=== PATIENT | male | born 1950 | race Caucasian/White ===

== ENCOUNTER 2017-04-25 02:42 | Emergency (ER) | payer OTHER ==
[~2017-04-25 02:42] MED LIST: METFORMIN HCL500 MG PO; PRO40 PO; SIMVASTATIN40 M1 PO; TRIBENZOR1 TA4 PO
[2017-04-25 04:41] VITALS: BP 138/81
== END 2017-04-25 04:41 | disposition home or self-care (01) ==
LOC: ED 02:42
DX: M62.830 Muscle spasm of back (principal); E11.9 Type 2 diabetes mellitus without complications; I10 Essential (primary) hypertension; E78.5 Hyperlipidemia, unspecified; E78.00 Pure hypercholesterolemia, unspecified
CPT/HCPCS: 20552; 82962; J1885; J2001

== ENCOUNTER 2019-02-21 19:10 | Emergency (ER) | payer OTHER | END 2019-02-21 23:44 | disposition home or self-care (01) | LOC: ED 19:10 ==

== ENCOUNTER 2019-02-23 10:59 | Inpatient (IN) | payer OTHER ==
[~2019-02-23] VITALS: Ht 160 cm; Wt 77.1 kg
[2019-02-23 11:08] VITALS: Ht 160 cm; Wt 77.1 kg
--- NOTE | 2019-02-23 11:26 | NUR ---
PT HERE FOR ABD PAIN BILATERAL UPPER QUADRANTS RADIATING TO BILATERAL FLANK 06/26. ABD SOFT AND ROUND WITHOUT PALP MASSES PRESENT. SEEN HERE FRID AND DX WITH STONES. CLAIMS PAIN IS WORSE TODAY AND HAS NAUSEA. DENIES V/D/FEVER PT ARRIVES ALERT AND ORIENTED WITH NO DISTRESS NOTED AND VSS. AWAITING MD ROA. URINE OBTAINED
--- NOTE | 2019-02-23 12:12 | NUR ---
CHIEF GUARD AT BEDSIDE GIVING ORAL CONTRAST. PT TO DRINK WITHIN 2 HOURS. PT AWARE AND VERBALIZED UNDERSTANDING
--- NOTE | 2019-02-23 12:45 | NUR ---
PT IN BED WITH EYES CLOSED AND NO PAIN NOTED OR APPARANT AT THIS TIME. BREATHING IS ALFREDO AND UNLABORED
[2019-02-23 12:51] LABS: PLATELET COUNT 139 x10^3mcL (130-400); RED CELL DISTRIBUTION WIDTH 13.6 % (11.5-14.5)
[2019-02-23 13:10] LABS: BAND NEUTROPHIL 6 % (0-10); BASOPHIL 0 % (0-2); MONOCYTE 4 % (0-7); PLATELET MORPHOLOGY PLATELETS NORMAL; SEGMENTED NEUTROPHILS 86 % (37-75)
[2019-02-23 13:24] LABS: ALBUMIN 3.5 g/dL (3.4-5.0); BILIRUBIN TOTAL 1.9 mg/dL (0.20-1.00); CALCIUM 9.2 mg/dL (8.5-10.1); CREATININE SERUM 1.3 mg/dL (0.7-1.3); POTASSIUM SERUM 4.8 mmol/L (3.5-5.1); TOTAL PROTEIN, SERUM 7.1 g/dL (6.4-8.2)
--- NOTE | 2019-02-23 15:37 | NUR ---
MED PER ORDER FOR 8/10 ABD PAIN. ON MONITORS.
--- NOTE | 2019-02-23 16:00 | NUR ---
PT ASKING FOR FOOD "SINCE I'M A DIABETIC." PER DR. CRAIG, NOTHING TO EAT @ THIS TIME.
--- NOTE | 2019-02-23 16:10 | NUR ---
FAMILY HERE, ASKING ABOUT WHAT TESTS HE'S HAVING THIS TIME. PT WAS HERE RECENTLY & HAD A NON-CONTRAST CT. TODAY'S ORDERED CT IS W/ CONTRAST. FAMILY SAID "OH, GOOD." FAMILY STATES PT WAS JUST BELCHING & APPEARS A LITTLE BLOATED.
--- NOTE | 2019-02-23 19:35 | NUR ---
PT AWAKE AND ALERT, NO S/S OF DISTRESS, RESPIRATIONS EVEN AND UNLABORED. PT IT TALKING WITH FAMILY MEMBER AT BEDSIDE. PT REPORTS PAIN HAS DECREASED TO A 4/10 AND IS TOLERABLE.
--- NOTE | 2019-02-23 20:25 | NUR ---
REPORTS CALLED TO GREGORIO MORALES TO ASSUME CARE OF PT.
[2019-02-23 20:50] VITALS: BP 126/68
--- NOTE | 2019-02-23 20:59 | NUR ---
RECEIVED PT FROM ER, PT ADMIT FOR PANCREATITIS, CHOLECYSTITIS, PT IS A/O X4, VERBAL RESPONSIVE, ABLE TO TELL WHAT HE NEEDS. LUNG SOUND CLEAR BILATERAL, NO COUGH, NO SOB, PT DENY ANY CHEST PAIN OR DISCOMFORT, BOWEL SOUND PRESENT ALL 4 QUADRANTS, NO DISTENTION, BUT PT C/O MILD ABD PAIN 4/10, AND NAUSEA. PEDAL PULSE PRESENT BOTH FEET, NO EDEMA, IV AT RIGHT AC, NO LEAKING, NO INFILTRATION. ALL ADLS ASSIST, ALL NEED MET, CALL LIGHT IN REACH, WILL CONTINUE TO MONITOR.
--- NOTE | 2019-02-23 22:13 | NUR ---
PATIENT GIVEN ZOFRAN PER EMAR FOR NAUSEA.
--- NOTE | 2019-02-24 00:14 | NUR ---
PATIENT GIVEN DILAUDID PER EMAR FOR 8/10 ABDOMINAL PAIN THAT RADIATES TO HIS BACK.
--- NOTE | 2019-02-24 05:45 | NUR ---
PATIENTS BLOOD GLUCOSE IS 285. INSULIN HELD DUE TO NPO STATUS FOR POSSIBLE SURGERY TODAY.
[2019-02-24 06:29] VITALS: BP 112/53
--- NOTE | 2019-02-24 06:50 | NUR ---
PATIENT'S IV TO RAC HAS INFILTRATED. IV ANTIBIOTIC PAUSED. IV D/C. WILL ENDORSE TO DAYSHIFT TO START NEW IV. PATIENT REMAINS NPO. DENIES PAIN, AND NAUSEA AT THIS TIME. CALL LIGHT WITHIN REACH.
--- NOTE | 2019-02-24 07:00 | NUR ---
PT AWAKE AND ALERT. SKIN WARM AND DRY. BREATH SOUNDS CLEAR SHASHI, NO RESP DISTRESS NOTED. 02 SAT 95% ON RA. MED SURG PT. NPO FOR NOW FOR POSS SURG TODAY. AWAITING FOR DR GIBBS. ABD SOFT AND ROUND WITH AUDIBLE BSX4 QUADS. PT STATED HAD LOOSE BM YESTERDAY. ABD DISCOMFORT 2/10, OFFERED PAIN MED, PT STATED DOESNT NEED PAIN MED AT THIS TIME. PT VOIDING WITHOUT PROBLEM. ANNABELLE WELL. NEW IV SITE INSERTED ON LT FA, #20ANGIOCATH WITH GOOD BLOOD RETURNED. IV LF D51/2NS INFUSING WELL AT 100CC/HR RESUMED. AT BEDSIDE AND UPDATED. PT SPEAKS MOSTLY [place]EL[place] BUT ABLE TO VERBALIZED NEEDS IN [place]. INTERPRETING IN [place]EL[place]. PT HAS A PATCH ON LT UPPER ARM, AND HAS SM PORTABLE BOX AND READS THE BLOOD SUGAR WHEN IT SCAN TO THE PATCH. BED IN LOW POSITION AND LOCKED. CALL LIGHT WITHIN REACHED.
[2019-02-24 07:34] LABS: CALCIUM 8.5 mg/dL (8.5-10.1); CARBON DIOXIDE 24.7 mmol/L (21-32); CREATININE SERUM 1.4 mg/dL (0.7-1.3); PHOSPHOROUS 3.4 mg/dL (2.5-4.9); POTASSIUM SERUM 4.2 mmol/L (3.5-5.1)
[2019-02-24 08:16] VITALS: BP 105/54
--- NOTE | 2019-02-24 09:45 | NUR ---
DR. ROPER HERE AND SPOKEN WITH PT AND . PLAN OF CARE DISCUSSED OF POSS OF [place]. AWAITING FOR DR. GIBBS TO SEE PT. IVF CHANGED TO NS 70CC/HR AT 1015.
[2019-02-24 11:29] LABS: BILIRUBIN DIRECT 0.46 mg/dL (0.0-0.2); BILIRUBIN TOTAL 2.3 mg/dL (0.20-1.00)
--- NOTE | 2019-02-24 11:30 | NUR ---
ACCUCHECK DONE 211, SCAN LT FA PATCH TO CHECK PTS OWN MACHINE AND READS 252. NO COVERAGE AT THIS TIME DUE TO PATIENT WILL BE GOING TO SURG IN ONE HOUR. PT DENIES PAIN. IV SITE ON LT FA, NO S/S INFILTRATION. CORBIN BATH DONE, CONSENT SIGNED AND CHECKLIST DONE.
[2019-02-24 11:31] LABS: ALBUMIN 2.8 g/dL (3.4-5.0); TOTAL PROTEIN, SERUM 5.6 g/dL (6.4-8.2)
--- NOTE | 2019-02-24 12:20 | NUR ---
PT TAKEN DOWN TO OR VIA [facility]. GIVEN REPORT TO OR NURSE MONIQUE FELIX.
--- NOTE | 2019-02-24 13:15 | NUR ---
PT STILL IN SURGERY. ENDORSED TO NICHELLE PERKINS.
--- NOTE | 2019-02-24 13:22 | NUR ---
RECEIVED PT FROM GREGORIO LIZ. PT IS IN OR
--- NOTE | 2019-02-24 15:54 | NUR ---
[facility]P OPEN ALEXSANDRA. ABD DRESSING NOTED WITH BANDAID X1 AND JOAN DRAIN. ABD PAIN 12/25. VSS, BP 109/58, HR 93, 02 SAT 93%RA, TEMP 98.2. WILL CONTINUE TO MONITOR
[2019-02-24 16:51] VITALS: BP 110/56
--- NOTE | 2019-02-24 19:15 | NUR ---
RECEIVED PT FROM PREVIOUS SHIFT NURSE. PT AOX4. DENIES MORALES/DIZZINESS. MED SURG PT, DENIES CP/PRESSURE. DENIES SOB/DIFFICULTY BREATHING. JOAN DRAIN TO RLQ. IV TO LAC, INTACT AND PATENT. BED IN LOWEST POSITION. CALL LIGHT WITHIN REACH. WILL CONTINUE TO MONITOR.
--- NOTE | 2019-02-24 19:50 | NUR ---
PT C/O 04/26 ABD PAIN, NOT DUE FOR PAIN MEDICATION AT THIS TIME. PAGED DR. ROPER. PER DR. ROPER CHANGE MED ORDER TO DILAUDID 1MG IVP Q4H PRN.
[2019-02-24 21:24] VITALS: BP 96/53
--- NOTE | 2019-02-25 02:52 | NUR ---
PT VOIDED 450 ML.
--- NOTE | 2019-02-25 03:03 | NUR ---
PT C/O 04/26 RLQ ABD PAIN. MEDICATED PER EMAR.
--- NOTE | 2019-02-25 03:57 | NUR ---
PT C/O WORSENING ABD PAIN WITH NEW ONSET CHEST AREA PAIN. DR. JACQUELIN BRAGA. AWAITING CALL BACK.
--- NOTE | 2019-02-25 04:05 | NUR ---
PER DR. ROPER, ORDER TORADOL 30MG IVP ONCE. WILL MEDICATE PER EMAR.
[2019-02-25 04:59] VITALS: BP 110/73
--- NOTE | 2019-02-25 06:03 | NUR ---
20 ML OF SEROSANGUINOUS OUTPUT EMPTIED FROM JOAN DRAIN
[2019-02-25 06:35] LABS: BILIRUBIN TOTAL 1.46 mg/dL (0.20-1.00); CALCIUM 7.7 mg/dL (8.5-10.1); CARBON DIOXIDE 21.1 mmol/L (21-32); CREATININE SERUM 1.5 mg/dL (0.7-1.3); POTASSIUM SERUM 4.7 mmol/L (3.5-5.1)
[2019-02-25 06:45] LABS: ALBUMIN 2.3 g/dL (3.4-5.0); TOTAL PROTEIN, SERUM 5.7 g/dL (6.4-8.2)
--- NOTE | 2019-02-25 07:15 | NUR ---
RECIEVED PT FROM NIGHT NURSE. PT IS LAYING DOWN IN BED WITH HOB UP AND EYES OPEN. PT LOOKS TO BE IN NO ACUTE DISTRESS AT THIS TIME. RESPIRATIONS EVEN AND UNLABORED ON ROOM AIR. JOAN DRAIN PRESENT. IV SITE PATENT WITH NO SIGNS OF ERYTHEMA OR SWELLING WITH IV FLUIDS INFUSING. BED IN LOWEST POSITION, CALL LIGHT WITHIN REACH. WILL CONTINUE TO MONITOR.
[2019-02-25 07:20] LABS: BASOPHIL % 0.1 % (0-2); PLATELET COUNT 128 x10^3mcL (130-400); RED CELL DISTRIBUTION WIDTH 14.2 % (11.5-14.5)
[2019-02-25 09:59] VITALS: BP 105/65
--- NOTE | 2019-02-25 14:29 | NUR ---
1. Continue CLD as tolerated. 2. When medically appropriate, advance diet to CCHO, low fat.
--- NOTE | 2019-02-25 14:29 | NUR ---
Initial Nutrition Assessment: 256/B LUIGI CRUMP HR Dx: Pancreatitis, cholecystitis PMHx: HTN, DM, High cholesterol PSHx: None Labs: NA 133L, BG 254H, BUN 26H, CREAT 1.5H, WBC 11.9H Meds: D 10%, dilaudid, humulin, Levaquin, Zofran, zosyn Diet: CLD PO Intake: not documented Ht: 160.02 cm (63") Wt: 77 kg (169#) BMI: 30.1 kg/m2 (obesity) Bed scale: 170# IBW: 124# (56 kg) %IBW: 137 UBW: 169# Age: 68/M Food Allergies: NKFA Skin: Intact John: 23 Edema: none GI: JOAN to RLQ Last BM: 05/26/19 Trigger: N/V/D/ >3d, poor PO > 3d Per H&P, Pt is a 68 year old male presenting into the ED for evaluation of mild to moderate, aching, and cramping abdominal pain that radiating to his back associated with nausea. RDN Visit (02/25): Pt was alert and oriented and said that he has poor appetite but drink some soup and tea this morning. Pt had questions regarding diabetic diet which were answered. Later, pt's family member came and she also had questions regarding his diet. All questions were answered and pt verbalized understanding. Problem with: N/V/D/C: no Problems with: Chewing/Swallowing: no Current appetite: poor Recent wt change: none %wt change: none Vitamin/Supplement use: vitamin C, MVI Special diet at home: Regular Physical activity: bicycle, weight lifting Nutrition education given: Food-drug interactions: Levaquin- Ensure liberal fluid intake/hydration Education given: yes Estimated Nutritional Needs Based on ideal body weight 56 kg Energy: 7011-6716 kcal/d (25-30 kcal/kg) Protein: 56-67 g/d (1.0-1.2 g/kg)- pancreatitis Fluid: 5286-0139 ml/d (1 ml/kcal) or per doctor Nutrition Diagnosis 1. Inadequate energy and protein intake related to poor appetite and pancreatitis as evidenced by pt on clear liquid diet and self-reported poor PO. Intervention 1. Continue CLD as tolerated. 2. When medically appropriate, advance diet to CCHO, low fat. Monitor/Evaluate Goal: PO intake at least 75% of estimated needs Monitor: PO intake, Labs, GI function F/U in 3-5 days as moderate risk 02/28-
--- NOTE | 2019-02-25 15:15 | NUR ---
PT COMPLAINING OF DARK URINE. URINE IS DARK, JOHN BROWN COLOR, PT DENIES ANY PAIN DURING URINATION OR DIFFICULTY URINATING. PT STATES ONLY HAD THIS DARK URINE WITH IN THE HOSPTIAL. WILL NOTIFY DR. FAMILY MEMBER AT BEDSIDE. CALL LIGHT WITHIN REACH, BED IN LOWEST POSITION. WILL CONTINUE TO MONITOR.
[2019-02-25 17:36] LABS: microscopic required? YES; urine erythrocyte 3+ (NEGATIVE)
[2019-02-25 18:31] VITALS: BP 115/61
--- NOTE | 2019-02-25 18:57 | NUR ---
PT IS TOBIN DOWN IN BED WATCHING TV. PT LOOKS TO BE IN NO ACUTE DISTRESS AND PT MEDICATED FOR ABDOMINAL PAIN. EMPTIED 20 ML OF SEROSANGENOUS DRAINAGE FRO, JOAN DRAIN. DRESSING IS INTACT TO ABD SUGICAL INCISION. RESPIRATIONS EVEN AND UNLABORED ON ROOM AIR. BED IN LOWEST POSITION, CALL LIGHT WITHIN REACH. WILL ENDORSE TO ONCOMING SHIFT.
--- NOTE | 2019-02-25 19:43 | NUR ---
RECEIVED PT FROM PREVIOUS SHIFT. PT A/OX4. DENIES PAIN. DENIES SOB ON RA. IV PATENT AND INFUSING NS AT 70ML/HR. JOAN TO RUQ WITH SEROSANGUINOUS OUTPUT. DRESSING WITH SMALL DRIED RED BLOOD ON DRESSING. NO S/S OF ACTIVE BLEED. CALL LIGHT WITHIN REACH, BED IN LOW POSITION. WILL CONTINUE TO MONITOR.
[2019-02-25 21:29] VITALS: BP 107/52
--- NOTE | 2019-02-26 02:31 | NUR ---
PT RESTING IN NO ACUTE DISTRESS. RR EVEN AND UNLABORED. CALL LIGHT WITHIN REACH, BED IN LOW POSITION. WILL CONTINUE TO MONITOR.
[2019-02-26 06:24] VITALS: BP 118/62
[2019-02-26 06:28] LABS: PLATELET COUNT 142 x10^3mcL (130-400); RED CELL DISTRIBUTION WIDTH 14.2 % (11.5-14.5)
[2019-02-26 06:44] LABS: BILIRUBIN TOTAL 1.4 mg/dL (0.20-1.00); CALCIUM 7.8 mg/dL (8.5-10.1); CARBON DIOXIDE 25.7 mmol/L (21-32); CREATININE SERUM 1.3 mg/dL (0.7-1.3); POTASSIUM SERUM 4.2 mmol/L (3.5-5.1)
[2019-02-26 06:45] LABS: ALBUMIN 2.2 g/dL (3.4-5.0); TOTAL PROTEIN, SERUM 5.7 g/dL (6.4-8.2)
[2019-02-26 06:55] LABS: BASOPHIL % 0 % (0-2)
[2019-02-26] MEDS ORDERED: AUG500 PO (08:17)
[2019-02-26 08:25] VITALS: BP 83/43
[2019-02-26 08:26] VITALS: BP 121/68
[2019-02-26 13:53] VITALS: BP 121/68
[2019-02-26 17:06] VITALS: BP 130/63
--- NOTE | 2019-02-26 19:25 | NUR ---
RECIEVED PT RESTING IN BED WITH NO ACUTE DISTRESS AT THIS TIME, PT HAS IV IN THE LEFT FA, ASSESSMENT PERFORMED AT THIS TIME, NO SOB OR PAIN AT THIS TIME, SAFETY PRECAUTIONS IN PLACE, WILL CONTINUE TO MONITOR
--- NOTE | 2019-02-26 19:37 | NUR ---
REPORT GIVEN TO URBAN PLANNING TEACHER NURSE, CARE ENDORSED
[2019-02-26 22:01] VITALS: BP 101/60
--- NOTE | 2019-02-26 22:50 | NUR ---
PT SLEEPING IN BED WITH NO ACUTE DISTRESS AT THIS TIME, RESPIRATIONS EVEN AND UNLABORED, SAFETY PRECAUTIONS IN PLACE WILL CONTINUE TO MONITOR
--- NOTE | 2019-02-27 00:45 | NUR ---
PT SLEEPING IN BED WITH NO ACUTE DISTRESS, RESPIRATIONS EVEN AND UNLABORED, SAFETY PRECAUTIONS IN PLACE WILL CONTINUE TO MONITOR
--- NOTE | 2019-02-27 02:50 | NUR ---
PT SLEEPING COMFORTABLY, NO ACUTE DISTRESS NOTED, RESPIRATIONS EVEN AND UNLABORED, SAFETY PRECAUTIONS IN PLACE, WILL CONTINUE TO MONITOR
--- NOTE | 2019-02-27 05:16 | NUR ---
PT SLEPT COMFORTABLY THROUGH THE NIGHT WITH NO ACUTE DISTRESS NOTED THROUGH THE NIGHT, PT WAS UP AMBULATED TO THE BATHROOM ONCE, PT DENIED ANY PAIN THROUGH THE NIGHT, NO INCREASE IN DRAINAGE WAS NOTED THROUGH SHIFT, SAFETY PRECAUTIONS IN PLACE, WILL CONTINUE TO MONITOR
[2019-02-27 06:33] VITALS: BP 124/72
--- NOTE | 2019-02-27 07:33 | NUR ---
ASSUMED CARE OF PATIENT. SEEN SLEEPING THIS MORNING WITH EQUAL AND UNLABORED RESPIRATIONS. NO APAPRENT S/SX OF DISTRESS OR DISCOMFORT. IV ON LAC PATENT AND INFUSING 30ML/HR NS. WILL CONTINUE TO MONITOR.
[2019-02-27 08:12] VITALS: BP 138/85
--- NOTE | 2019-02-27 10:59 | NUR ---
D/C JOAN DRAIN. WOUND PICTURES TAKEN. PLACED IN CHART.
[2019-02-27 11:36] VITALS: BP 121/68
--- NOTE | 2019-02-27 11:50 | NUR ---
DISCHARGE INSTRUCTION AND PAPERWORK PROVIDED. IV REMOVED WITH CATHTER FULLY INTACT. ID BAND REMOVED.
--- NOTE | 2019-02-27 12:00 | NUR ---
PATIENT DISCHARGED BY WHEELCHAIR WITH ALL BELONGINGS AND AT SIDE. NO APPARENT DISTRESS OR DISCOMFORT NOTED. NO COMPLAINTS OF PAIN.
== END 2019-02-27 11:59 | disposition home or self-care (01) | DRG 415 ==
LOC: ED 10:59 → MU 19:12
PROVIDERS: Specialist; Surgery; ADMIT Internal Medicine Pulmonary Disease
PROC: 0FJ44ZZ Inspection of Gallbladder, Percutaneous Endoscopic Approach (ICD-10-PCS; 2019-02-24)
PROC: 3E0M05Z Introduction of Adhesion Barrier into Peritoneal Cavity, Open Approach (ICD-10-PCS; 2019-02-24)
PROC: 0FT40ZZ Resection of Gallbladder, Open Approach (ICD-10-PCS; principal; 2019-02-24 12:30)
DX: K80.00 Calculus of gallbladder with acute cholecystitis without obstruction (principal); E87.1 Hypo-osmolality and hyponatremia; N17.9 Acute kidney failure, unspecified; K82.A1 Gangrene of gallbladder in cholecystitis; E86.0 Dehydration; E11.65 Type 2 diabetes mellitus with hyperglycemia; I10 Essential (primary) hypertension; Z79.84 Long term (current) use of oral hypoglycemic drugs
CPT/HCPCS: 82962; G0378; J0330; J0690; J1170; J1815; J1885; J1956; J2270; J2405; J2543; J2704; J2710; J3010; J3490; J7030; Q0092; Q9966; Q9967

== ENCOUNTER 2019-10-16 16:10 | Observation (INO) | payer OTHER ==
[~2019-10-16] VITALS: Ht 167.6 cm; Wt 73.1 kg
[~2019-10-16 16:10] MED LIST changes: +AUG500 PO; +FORTAMET500 M1; -METFORMIN HCL500 MG PO
[2019-10-16 16:54] LABS: PLATELET COUNT 300 x10^3mcL (130-400)
[2019-10-16 17:12] LABS: BILIRUBIN TOTAL 0.58 mg/dL (0.20-1.00); CALCIUM 7.4 mg/dL (8.5-10.1); CREATININE SERUM 2.4 mg/dL (0.7-1.3); TOTAL PROTEIN, SERUM 6.4 g/dL (6.4-8.2)
[2019-10-16 17:13] LABS: ALBUMIN 2.4 g/dL (3.4-5.0); POTASSIUM SERUM 2.6 mmol/L (3.5-5.1)
[2019-10-16 17:14] LABS: ATYPICAL LYMPH 4 %; BAND NEUTROPHIL 7 % (0-10); METAMYELOCTE 5 % (0-2); MONOCYTE 25 % (0-7); SEGMENTED NEUTROPHILS 7 % (37-75)
[2019-10-16 17:16] LABS: acanthocyte (spur cell) 2+; rbc morphology (normal/abnorm) ABNORMAL (NORMAL)
[2019-10-16 17:18] LABS: PLATELET MORPHOLOGY LARGE PLATELET SEEN
[2019-10-16] MEDS ORDERED: MULTI-VITAMIN1 EACH PO (17:53)
[2019-10-16] MEDS ORDERED: TRIBENZOR1 TA1 PO (17:53)
[2019-10-16] MEDS ORDERED: NOVOLOG100 U/ML SC (17:54)
[2019-10-16 19:10] VITALS: BP 98/64
[2019-10-16 19:14] VITALS: Ht 167.6 cm; Wt 73.1 kg
[2019-10-17 05:25] VITALS: BP 94/48
[2019-10-17 06:06] VITALS: BP 107/51
[2019-10-17 06:50] LABS: CALCIUM 7.7 mg/dL (8.5-10.1); CARBON DIOXIDE 15.7 mmol/L (21-32); CREATININE SERUM 1.6 mg/dL (0.7-1.3); MAGNESIUM 1.8 mg/dL (1.8-2.4)
[2019-10-17 06:52] LABS: POTASSIUM SERUM 2.9 mmol/L (3.5-5.1)
[2019-10-17 08:24] VITALS: BP 93/51
[2019-10-17 08:37] LABS: PLATELET COUNT 289 x10^3mcL (130-400); RED CELL DISTRIBUTION WIDTH 14.9 % (11.5-14.5)
[2019-10-17 08:41] LABS: ATYPICAL LYMPH 0 %; BAND NEUTROPHIL 3 % (0-10); BASOPHIL 0 % (0-2); MONOCYTE 44 % (0-7); SEGMENTED NEUTROPHILS 15 % (37-75); rbc morphology (normal/abnorm) ABNORMAL (NORMAL)
[2019-10-17 12:41] VITALS: BP 101/52
[2019-10-17 17:41] VITALS: BP 102/45
[2019-10-17 21:10] VITALS: BP 100/57
[2019-10-18 06:07] VITALS: BP 103/65
[2019-10-18 06:35] LABS: PLATELET COUNT 317 x10^3mcL (130-400)
[2019-10-18 06:59] LABS: RED CELL DISTRIBUTION WIDTH 15.5 % (11.5-14.5)
[2019-10-18 07:37] LABS: CHLORIDE SERUM 109 mmol/L (98-107); CREATININE SERUM 1.1 mg/dL (0.7-1.3); GFR1 > 60 mL/min; GLUCOSE SERUM 124 mg/dL (74-106); POTASSIUM SERUM 3.9 mmol/L (3.5-5.1); SODIUM SERUM 137 mmol/L (136-145)
[2019-10-18 07:38] LABS: ALBUMIN 1.9 g/dL (3.4-5.0); ALKALINE PHOSPHATASE 65 U/L (46-116); ALT/SGPT 15 U/L (16-63); AST/SGOT 11 U/L (15-37); BILIRUBIN TOTAL 0.33 mg/dL (0.20-1.00); CALCIUM 7.9 mg/dL (8.5-10.1); MAGNESIUM 1.5 mg/dL (1.8-2.4); TOTAL PROTEIN, SERUM 5.3 g/dL (6.4-8.2)
[2019-10-18] MEDS ORDERED: FLAGYL500 MG PO (08:25)
[2019-10-18] MEDS ORDERED: LOPERAMIDE HCL2 M1 PO (08:25)
[2019-10-18 08:41] VITALS: BP 117/55
[2019-10-18 09:41] VITALS: BP 117/55
[2019-10-18 11:19] LABS: BAND NEUTROPHIL 2 % (0-10); BASOPHIL 0 % (0-2); MONOCYTE 36 % (0-7); SEGMENTED NEUTROPHILS 27 % (37-75)
[2019-10-18 11:20] LABS: PLATELET MORPHOLOGY PLATELETS NORMAL; acanthocyte (spur cell) 2+
[2019-10-18 11:30] LABS: rbc morphology (normal/abnorm) NORMAL (NORMAL)
== END 2019-10-18 10:25 | disposition home or self-care (01) ==
LOC: ED 16:10 → DU 17:48
PROVIDERS: Emergency Medicine; Internal Medicine Pulmonary Disease; ADMIT Internal Medicine Pulmonary Disease
DX: E86.0 Dehydration (principal); E46 Unspecified protein-calorie malnutrition; C25.9 Malignant neoplasm of pancreas, unspecified; K12.30 Oral mucositis (ulcerative), unspecified; E87.6 Hypokalemia; E87.1 Hypo-osmolality and hyponatremia; N17.9 Acute kidney failure, unspecified; D72.829 Elevated white blood cell count, unspecified; I10 Essential (primary) hypertension; E11.9 Type 2 diabetes mellitus without complications; E78.5 Hyperlipidemia, unspecified
CPT/HCPCS: 82962; 87046; 87046-59; 97116-GP; G0378; J1956; J3480; J3490; Q0092

== ENCOUNTER 2019-11-02 22:14 | Emergency (ER) | payer OTHER ==
[~2019-11-02] VITALS: Ht 167.6 cm; Wt 73.5 kg
[~2019-11-02 22:14] MED LIST changes: +FLAGYL500 MG PO; +LOPERAMIDE HCL2 M1 PO; +MULTI-VITAMIN1 EACH PO; +NOVOLOG100 U/ML SC; +TRIBENZOR1 TA1 PO
[2019-11-02 22:22] VITALS: Ht 167.6 cm; Wt 73.5 kg
[2019-11-03 00:11] LABS: PLATELET COUNT 322 x10^3mcL (130-400)
[2019-11-03 00:17] LABS: RED CELL DISTRIBUTION WIDTH 16.9 % (11.5-14.5)
[2019-11-03 00:43] LABS: BAND NEUTROPHIL 10 % (0-10); METAMYELOCTE 4 % (0-2); MONOCYTE 4 % (0-7); SEGMENTED NEUTROPHILS 66 % (37-75)
[2019-11-03 00:45] LABS: PLATELET MORPHOLOGY PLATELETS NORMAL; rbc morphology (normal/abnorm) ABNORMAL (NORMAL)
[2019-11-03 00:58] LABS: ALBUMIN 3.3 g/dL (3.4-5.0); ALKALINE PHOSPHATASE 189 U/L (46-116); ALT/SGPT 37 U/L (16-63); AST/SGOT 26 U/L (15-37); BILIRUBIN TOTAL 0.4 mg/dL (0.20-1.00); LIPASE 377 IU/L (73-393); TOTAL PROTEIN, SERUM 6.4 g/dL (6.4-8.2)
[2019-11-03 01:05] LABS: CARBON DIOXIDE 22.5 mmol/L (21-32); CHLORIDE SERUM 99 mmol/L (98-107); GLUCOSE SERUM 203 mg/dL (74-106); POTASSIUM SERUM 4.3 mmol/L (3.5-5.1); SODIUM SERUM 135 mmol/L (136-145)
[2019-11-03 01:06] LABS: CALCIUM 8.7 mg/dL (8.5-10.1); CREATININE SERUM 1.1 mg/dL (0.7-1.3); GFR1 > 60 mL/min
[2019-11-03 02:20] VITALS: BP 105/57
== END 2019-11-03 02:20 | disposition home or self-care (01) ==
LOC: ED 22:14
PROVIDERS: Emergency Medicine
DX: M54.5 Low back pain (principal); R07.89 Other chest pain; I10 Essential (primary) hypertension; E11.9 Type 2 diabetes mellitus without complications; Z85.07 Personal history of malignant neoplasm of pancreas; Z90.49 Acquired absence of other specified parts of digestive tract; Z98.890 Other specified postprocedural states
CPT/HCPCS: J2270; Q0092

== ENCOUNTER 2019-11-20 18:43 | Emergency (ER) | payer OTHER ==
[~2019-11-20] VITALS: Ht 167.6 cm; Wt 71.2 kg
[2019-11-20 18:50] VITALS: Ht 167.6 cm; Wt 71.2 kg
[2019-11-20 22:39] VITALS: BP 111/59
== END 2019-11-20 22:30 | disposition home or self-care (01) ==
LOC: ED 18:43
DX: R06.6 Hiccough (principal); I10 Essential (primary) hypertension; E11.9 Type 2 diabetes mellitus without complications; E78.00 Pure hypercholesterolemia, unspecified; Z90.49 Acquired absence of other specified parts of digestive tract; Z85.07 Personal history of malignant neoplasm of pancreas
CPT/HCPCS: J8597

== ENCOUNTER 2019-11-23 23:11 | Emergency (ER) | payer OTHER ==
[~2019-11-23] VITALS: Ht 165.1 cm; Wt 72.6 kg
[2019-11-23 23:17] VITALS: Ht 165.1 cm; Wt 72.6 kg
[2019-11-24 02:14] VITALS: BP 107/63
== END 2019-11-24 02:14 | disposition home or self-care (01) ==
LOC: ED 23:11
DX: R06.6 Hiccough (principal); I10 Essential (primary) hypertension; R06.02 Shortness of breath; E11.9 Type 2 diabetes mellitus without complications; E78.00 Pure hypercholesterolemia, unspecified; Z90.49 Acquired absence of other specified parts of digestive tract; Z85.07 Personal history of malignant neoplasm of pancreas
CPT/HCPCS: J3230; Q0092

== ENCOUNTER 2020-04-20 00:53 | Emergency (ER) | payer OTHER ==
[~2020-04-20] VITALS: Ht 162.6 cm; Wt 72.6 kg
[~2020-04-20 00:53] MED LIST changes: +COLACE100 MG; +FEOSOL65 M1 PO
[2020-04-20 01:08] VITALS: Ht 162.6 cm; Wt 72.6 kg
[2020-04-20 02:47] LABS: BASOPHIL % 1.1 % (0-2); PLATELET COUNT 362 x10^3mcL (130-400)
[2020-04-20 02:49] LABS: RED CELL DISTRIBUTION WIDTH 16.4 % (11.5-14.5)
[2020-04-20 03:04] LABS: CALCIUM 9.4 mg/dL (8.5-10.1); CARBON DIOXIDE 30.6 mmol/L (21-32); CREATININE SERUM 1.4 mg/dL (0.7-1.3); POTASSIUM SERUM 4.5 mmol/L (3.5-5.1)
[2020-04-20 03:09] LABS: ALBUMIN 3.7 g/dL (3.4-5.0); BILIRUBIN TOTAL 0.51 mg/dL (0.20-1.00); TOTAL PROTEIN, SERUM 6.8 g/dL (6.4-8.2)
[2020-04-20 05:14] VITALS: BP 109/60
== END 2020-04-20 05:14 | disposition home or self-care (01) ==
LOC: ED 00:53
PROVIDERS: Emergency Medicine
DX: G89.29 Other chronic pain (principal); R10.13 Epigastric pain; D50.0 Iron deficiency anemia secondary to blood loss (chronic); K92.1 Melena
CPT/HCPCS: J2405; J3010; Q0092

== ENCOUNTER 2020-05-10 20:07 | Emergency (ER) | payer OTHER ==
[~2020-05-10] VITALS: Ht 167.6 cm; Wt 68.5 kg
[2020-05-10 20:15] VITALS: Ht 167.6 cm; Wt 68.5 kg
[2020-05-10 20:40] LABS: BASOPHIL % 0.5 % (0-2); PLATELET COUNT 298 x10^3mcL (130-400); RED CELL DISTRIBUTION WIDTH 17.4 % (11.5-14.5)
[2020-05-10 20:54] LABS: CALCIUM 9.2 mg/dL (8.5-10.1); CARBON DIOXIDE 24.8 mmol/L (21-32); CREATININE SERUM 1.3 mg/dL (0.7-1.3); POTASSIUM SERUM 4.7 mmol/L (3.5-5.1)
[2020-05-10 20:58] LABS: ALBUMIN 3.7 g/dL (3.4-5.0); BILIRUBIN TOTAL 0.5 mg/dL (0.20-1.00); TOTAL PROTEIN, SERUM 7.3 g/dL (6.4-8.2)
[2020-05-10 22:08] VITALS: BP 111/61
== END 2020-05-10 22:08 | disposition home or self-care (01) ==
LOC: ED 20:07
PROVIDERS: Emergency Medicine
DX: R10.13 Epigastric pain (principal); R10.12 Left upper quadrant pain; R14.0 Abdominal distension (gaseous); I10 Essential (primary) hypertension; E11.9 Type 2 diabetes mellitus without complications; Z85.07 Personal history of malignant neoplasm of pancreas
CPT/HCPCS: J2270; J2405

== ENCOUNTER 2020-05-14 10:21 | Emergency (ER) | payer OTHER ==
[~2020-05-14] VITALS: Ht 157.5 cm; Wt 67.6 kg
[2020-05-14 10:29] VITALS: Ht 157.5 cm; Wt 67.6 kg
[2020-05-14 13:10] VITALS: BP 113/66
== END 2020-05-14 13:10 | disposition home or self-care (01) ==
LOC: ED 10:21
DX: R10.9 Unspecified abdominal pain (principal); R11.10 Vomiting, unspecified; I10 Essential (primary) hypertension; E11.9 Type 2 diabetes mellitus without complications; E78.00 Pure hypercholesterolemia, unspecified; Z85.07 Personal history of malignant neoplasm of pancreas; Z98.890 Other specified postprocedural states
CPT/HCPCS: J2270; Q0162

== ENCOUNTER 2020-05-16 10:49 | Emergency (ER) | payer OTHER ==
[~2020-05-16] VITALS: Ht 165.1 cm; Wt 69.9 kg
[2020-05-16 11:06] VITALS: Ht 165.1 cm; Wt 69.9 kg
[2020-05-16 12:25] LABS: BASOPHIL % 0.6 % (0-2); PLATELET COUNT 368 x10^3mcL (130-400); RED CELL DISTRIBUTION WIDTH 17.3 % (11.5-14.5)
[2020-05-16 12:46] LABS: CALCIUM 8.8 mg/dL (8.5-10.1); CARBON DIOXIDE 29.8 mmol/L (21-32); CREATININE SERUM 1.4 mg/dL (0.7-1.3); POTASSIUM SERUM 4.2 mmol/L (3.5-5.1)
[2020-05-16 12:50] LABS: ALBUMIN 3.4 g/dL (3.4-5.0); BILIRUBIN TOTAL 0.49 mg/dL (0.20-1.00); TOTAL PROTEIN, SERUM 6.9 g/dL (6.4-8.2)
[2020-05-16 13:53] VITALS: BP 129/67
== END 2020-05-16 13:54 | disposition home or self-care (01) ==
LOC: ED 10:49
PROVIDERS: Specialist
DX: R10.32 Left lower quadrant pain (principal); G89.29 Other chronic pain; E11.22 Type 2 diabetes mellitus with diabetic chronic kidney disease; I12.9 Hypertensive chronic kidney disease with stage 1 through stage 4 chronic kidney disease, or unspecified chronic kidney disease; N18.9 Chronic kidney disease, unspecified; E78.00 Pure hypercholesterolemia, unspecified; Z85.07 Personal history of malignant neoplasm of pancreas; Z87.19 Personal history of other diseases of the digestive system
CPT/HCPCS: J1885; J2270; Q0162

== ENCOUNTER 2020-05-17 07:59 | Emergency (ER) | payer OTHER ==
[~2020-05-17] VITALS: Ht 167.6 cm; Wt 68.9 kg
[2020-05-17 08:12] VITALS: Ht 167.6 cm; Wt 68.9 kg
[2020-05-17 08:56] VITALS: BP 133/76
== END 2020-05-17 08:56 | disposition home or self-care (01) ==
LOC: ED 07:59
DX: R10.13 Epigastric pain (principal); R10.84 Generalized abdominal pain; Z85.07 Personal history of malignant neoplasm of pancreas

== ENCOUNTER 2020-05-25 02:08 | Inpatient (IN) | payer OTHER ==
[~2020-05-25] VITALS: Ht 162.6 cm; Wt 65.8 kg
[2020-05-25 02:10] VITALS: Ht 162.6 cm; Wt 65.8 kg
[2020-05-25 03:05] LABS: BASOPHIL % 0.2 % (0-2); PLATELET COUNT 371 x10^3mcL (130-400); RED CELL DISTRIBUTION WIDTH 15.6 % (11.5-14.5)
[2020-05-25 04:28] LABS: CALCIUM 9.2 mg/dL (8.5-10.1); CARBON DIOXIDE 25.9 mmol/L (21-32); CREATININE SERUM 1.5 mg/dL (0.7-1.3); POTASSIUM SERUM 5.3 mmol/L (3.5-5.1)
[2020-05-25 04:33] LABS: ALBUMIN 3.5 g/dL (3.4-5.0); BILIRUBIN TOTAL 0.58 mg/dL (0.20-1.00); TOTAL PROTEIN, SERUM 7.3 g/dL (6.4-8.2)
[2020-05-25] MEDS ORDERED: NORCO 10-325 T1 EACH PO (04:45)
[2020-05-25] MEDS ORDERED: NORCO1 TA2 PO (05:29)
[2020-05-25 07:42] VITALS: BP 125/60
[2020-05-25 09:27] VITALS: BP 125/60
[2020-05-25 11:59] VITALS: BP 129/63
[2020-05-25 15:39] VITALS: BP 120/59
[2020-05-25 21:15] VITALS: BP 108/63
[2020-05-26 05:36] VITALS: BP 133/64
[2020-05-26 07:16] LABS: BILIRUBIN TOTAL 0.9 mg/dL (0.20-1.00); CALCIUM 8.6 mg/dL (8.5-10.1); CARBON DIOXIDE 28.4 mmol/L (21-32); CREATININE SERUM 1.3 mg/dL (0.7-1.3); POTASSIUM SERUM 4.5 mmol/L (3.5-5.1); TOTAL PROTEIN, SERUM 6.5 g/dL (6.4-8.2)
[2020-05-26 07:19] LABS: ALBUMIN 3.1 g/dL (3.4-5.0)
[2020-05-26 08:05] LABS: BASOPHIL % 0.3 % (0-2); PLATELET COUNT 311 x10^3mcL (130-400)
[2020-05-26 09:03] LABS: RED CELL DISTRIBUTION WIDTH 16.9 % (11.5-14.5)
[2020-06-05] MEDS ORDERED: BACLOFEN5 MG PO (11:03)
[2020-06-05] MEDS ORDERED: PROTONIX TR40 M1 PO (11:04)
== END 2020-05-26 07:45 | disposition left against medical advice (07) | DRG 389 ==
LOC: ED 02:08 → MU 06:08
PROVIDERS: Emergency Medicine; ADMIT Hospitalist; ATTEND Hospitalist
DX: K56.609 Unspecified intestinal obstruction, unspecified as to partial versus complete obstruction (principal); E87.1 Hypo-osmolality and hyponatremia; I10 Essential (primary) hypertension; E11.9 Type 2 diabetes mellitus without complications; E78.00 Pure hypercholesterolemia, unspecified; Z83.3 Family history of diabetes mellitus; Z90.49 Acquired absence of other specified parts of digestive tract; Z85.07 Personal history of malignant neoplasm of pancreas; Z85.05 Personal history of malignant neoplasm of liver; Z20.828 Contact with and (suspected) exposure to other viral communicable diseases; E87.5 Hyperkalemia; D64.9 Anemia, unspecified
CPT/HCPCS: A9698; G0378; J2270; J2765; J7030; Q9967